=== PATIENT | male | born 1970 | race Caucasian/White ===

== ENCOUNTER 2022-03-05 22:00 | Emergency (ER) | payer OTHER ==
[~2022-03-05] VITALS: Ht 185.4 cm; Wt 77.1 kg
[2022-03-06] MEDS ORDERED: LOTREL 5-20 MG1 EACH PO (01:42)
--- NOTE | 2022-03-06 07:47 | EKG ---
[facility] [address] [place] [address] Signed Normal sinus rhythm Nonspecific T wave abnormality Abnormal ECG No previous ECGs available Confirmed by HARDY HERMAN MD ([id number] on 03/06/2022 7:47:29 AM Electronically Signed By: HARDY HERMAN MD 03/06/22 0747 PATIENT NAME: ADDIE MARIEN Electrocardiogram DATE OF : 66 PHYSICIAN: HARDY HERMAN MD REPORT #: [id number] REPORT IS CONFIDENTIAL AND NOT TO BE RELEASED WITHOUT AUTHORIZATION
== END 2022-03-06 01:50 | disposition home or self-care (01) ==
LOC: ED 22:00
DX: I16.0 Hypertensive urgency (principal)
CPT/HCPCS: 36415; 80053; 81003; 85025; 93005; 93010; 96374; 96375; 99283-25; J0360; J7121

== ENCOUNTER 2023-03-05 09:01 | Emergency (ER) | payer OTHER ==
[~2023-03-05] VITALS: Ht 185.4 cm; Wt 85.3 kg
[~2023-03-05 09:01] MED LIST: LOTREL 5-20 MG1 EACH PO
[2023-03-05 09:54] VITALS: BP 160/88
== END 2023-03-05 09:55 | disposition home or self-care (01) ==
LOC: ED 09:01
DX: S61.243A Puncture wound with foreign body of left middle finger without damage to nail, initial encounter (principal); I10 Essential (primary) hypertension; W29.8XXA Contact with other powered hand tools and household machinery, initial encounter
CPT/HCPCS: 73140; 99283-25